=== PATIENT | male | born 1990 | race Caucasian/White ===

== ENCOUNTER → 2018-10-28 20:12 | Outpatient (CLI) | payer MEDICAID, SELFPAY ==
[2018-09-20 14:47] VITALS: BMI 51.7
[2018-10-25 13:44] VITALS: BMI 52.0
== END ==
PROVIDERS: PCP Internal Medicine; Referring Provider Internal Medicine; Visit Provider Internal Medicine
DX: G47.10 Hypersomnia, unspecified (principal)
CPT/HCPCS: 95810

== ENCOUNTER → 2019-12-12 09:25 | Outpatient (CLI) | payer MEDICAID, SELFPAY ==
[2019-12-05 10:25] VITALS: BMI 51.3
== END ==
PROVIDERS: PCP Internal Medicine; Referring Provider Nurse Practitioner Family; Visit Provider Nurse Practitioner Family
DX: U07.1 COVID-19 (principal); R05 Cough
CPT/HCPCS: 87635; C9803; U0003